=== PATIENT | female | born 1980 | race Caucasian/White ===

== ENCOUNTER 2017-03-31 12:30 | Inpatient (IN) | payer BC ==
[2017-03-31] MEDS ORDERED: ELECTROLYTE-148 SOLN 1,000 ML IV ONE (13:25)
[2017-03-31 13:59] LABS: BASOPHIL 0.9 % (0-2.0); EOSINOPHIL 0.5 % (0-4.5); MCH 27.4 pg (25.7-33.7); MCHC 33.4 g/dl (32.0-36.0); MEAN CELL VOLUME 82.2 fl (80-96); MEAN PLT VOLUME 9.5 fl (7.5-11.1); NEUTROPHILS 78.2 % (42.8-82.8); PLATELET COUNT 140 K/MM3 (134-434); RDW 15.6 % (11.6-15.6); WHITE BLOOD COUNT 9.4 K/mm3 (4.0-10.0)
[2017-03-31 14:22] LABS: INR 0.98 (0.82-1.09); PROTHROMBIN TIME (PATIENT) 10.8 SEC (9.98-11.88)
[2017-03-31 14:25] LABS: ACTIVATED PTT 25.3 SECONDS (26.9-34.4)
[2017-03-31 14:26] VITALS: BMI 28.3
[2017-03-31] MEDS ORDERED: CITRIC ACID/SODIUM CITRATE 30 ML UNIT-DOSE CUP PO ONE (14:30)
[2017-03-31] MEDS: ELECTROLYTE-148 SOLN 1,000 ML IV SCH (15:00)
[2017-03-31 15:12] LABS: HIV 1 & 2 AB NEGATIVE; HIV 1 AGp24 NEGATIVE
[2017-03-31] MEDS ORDERED: ONDANSETRON 4 MG/2 ML VIAL IVPUSH PRN (15:20)
--- NOTE | 2017-03-31 15:29 | HP ---
Past Medical History - Primary Care Physician PCP:: Jaxson Weiss - Admission Chief Complaint: 39,4 weeks by date,38 by sono labor, request for sterlization History of Present Illness: 36 yo f edc by date 04/03/17 by sono 04/14 c/o contraction since last night , no rom, no bleeding cx 1 cm 70 vx -2 mi, fhr cat 1, contraction q 3 min History Source: Patient Limitations to Obtaining History: No Limitations - Past Medical History ...: 3 ...Para: 2 ...Term: 2 ...: 0 ...Spon : 0 ...Induced : 0 ...Multiple Gestation: 0 ...LMP: 06/27/16 ... Weeks Gestation by Dates: 39.4 ...EDC by Dates: 04/03/17 ...EDC by Sono: 04/14/17 - Past Surgical History Past Surgical History: Yes: (2 previous c/s knee surgery, adenoidectomy herniated cervical spine disc) Hx Myomectomy: No Hx Transabdominal Cerclage: No - Smoking History Smoking history: Never smoked Have you smoked in the past 12 months: No - Alcohol/Substance Use Hx Alcohol Use: No - Social History Usual Living Arrangement: Yes: With Spouse History of Recent Travel: No Home Medications - Allergies Allergies/Adverse Reactions: Allergies Allergy/AdvReac Type Severity Reaction Status Date / Time pseudoephedrine HCl Allergy Severe hallucinati Verified 03/31/17 13:23 [From [facility]] ons Review of Systems - Review of Systems Constitutional: reports: No Symptoms Eyes: reports: No Symptoms HENT: reports: No Symptoms Neck: reports: No Symptoms Cardiovascular: reports: No Symptoms Respiratory: reports: No Symptoms Gastrointestinal: reports: Abdominal Pain Genitourinary: reports: Frequency Breasts: reports: No Symptoms Reported Musculoskeletal: reports: No Symptoms Integumentary: reports: No Symptoms Neurological: reports: No Symptoms Endocrine: reports: No Symptoms Hematology/Lymphatic: reports: No Symptoms Physical Exam - Maternity Vital Signs: Vital Signs Temperature 98.9 F 03/31/17 13:47 Pulse Rate 90 03/31/17 13:47 Respiratory Rate 18 03/31/17 13:47 Blood Pressure 110/76 03/31/17 13:47 O2 Sat by Pulse Oximetry (%) Constitutional: Yes: Well Nourished, No Distress, Calm Eyes: Yes: WNL, Conjunctiva Clear, EOM Intact HENT: Yes: WNL, Atraumatic, Normocephalic Neck: Yes: WNL, Supple, Trachea Midline Cardiovascular: Yes: WNL, Regular Rate and Rhythm Breast(s): Yes: WNL - Abdominal Exam/OB Number of Fetuses: Single Presentation: Vertex Contractions: Yes Regularity: Regular Intensity: Mod/Strong Monitor Mode: External Heart Rate Location: [facility] Category: I Accelerations: Uniform Decelerations: None - Vaginal Exam/OB Amniotic Membrane Status: Intact Presentation: Vertex/Position Station: -2 - Physical Exam Musculoskeletal: Yes: WNL Edema: Yes Edema: LLE: Trace, RLE: Trace Deep Tendon Reflex Grade: Normal +2 ...Motor Strength: WNL Psychiatric: Yes: WNL - Labs Lab Results: CBC, BMP 03/31/17 13:50 Hemorrhage Risk Assessment - Risk Factors Medium Risk Factors: Yes: Prior , uterine surgery,or multiple laparotomies Risk Score: 1 Risk Level: Medium Risk Problem List - Problems (1) with 38 completed weeks gestation Code(s): Z3A.38 - 38 WEEKS GESTATION OF (2) First stage of labor established Code(s): EKM1531 - (3) Labor established Code(s): IWL1219 - (4) Previous delivery affecting , antepartum Code(s): O34.219 - MATERNAL CARE FOR UNSP TYPE SCAR FROM PREVIOUS DEL (5) Sterilization Code(s): Z30.2 - ENCOUNTER FOR STERILIZATION Assessment/Plan repeat LST c/s and BTL, rba discussed
[2017-03-31] MEDS ORDERED: TUBERCULIN PPD 5 TU/0.1ML SYRINGE (IN PATIENT USE ONLY) ID ONE (16:00)
[2017-03-31] MEDS ORDERED: WITCH HAZEL 50% (TUCKS) 40 PAD/JAR PAD TP PRN (16:19)
[2017-03-31] MEDS ORDERED: BENZOCAINE 20% 57 GM BOTTLE TP PRN (16:19)
[2017-03-31] MEDS ORDERED: diphenhydrAMINE HCL 25 MG CAPSULE (FP) PO PRN (16:19)
[2017-03-31] MEDS ORDERED: METHYLERGONOVINE MALEATE 0.2 MG/1 ML AMP IM PRN (16:19)
[2017-03-31] MEDS ORDERED: oxyCODONE HCL 5 MG TABLET PO PRN (16:19)
[2017-03-31] MEDS ORDERED: BENZOCAINE 28 GM HEMORRHOIDAL OINTMENT PR PRN (16:19)
[2017-03-31] MEDS ORDERED: IBUPROFEN 800 MG/8 ML IJ IVPB PRN (16:19)
[2017-03-31] MEDS ORDERED: OXYTOCIN 20 UNITS in 0.9% NS 1,000 ML IV SCH (16:30)
[2017-03-31 17:34] LABS: ANION GAP 11 (8-16); CO2 21 mmol/L (21-32); CREATININE 0.5 mg/dL (0.55-1.02); GLUCOSE,RANDOM 75 mg/dL (74-106)
[2017-03-31] MEDS: IBUPROFEN 800 MG/8 ML IJ IVPB PRN (18:17)
[2017-03-31] MEDS ORDERED: DEXTROSE 5%-WATER - 50 ML IVPB ONE (23:32)
[2017-03-31] MEDS ORDERED: ceFAZolin SODIUM 1 GM VIAL ONE (23:32)
[2017-04-01] MEDS: CEFAZOLIN 1 GM in DEXTROSE 5%-WATER - 50 ML IVPB SCH ×2 (00:12→08:05)
[2017-04-01 07:32] LABS: BASOPHIL 0.5 % (0-2.0); EOSINOPHIL 0.6 % (0-4.5); MCH 27.5 pg (25.7-33.7); MEAN CELL VOLUME 83.4 fl (80-96); MEAN PLT VOLUME 9.6 fl (7.5-11.1); NEUTROPHILS 82.7 % (42.8-82.8); PLATELET COUNT 129 K/MM3 (134-434); RDW 15.5 % (11.6-15.6); WHITE BLOOD COUNT 12.2 K/mm3 (4.0-10.0)
[2017-04-01] MEDS ORDERED: DEXTROSE 5%-WATER - 50 ML IVPB ONE (07:55)
[2017-04-01] MEDS ORDERED: ceFAZolin SODIUM 1 GM VIAL ONE (07:55)
[2017-04-01] MEDS: IBUPROFEN 800 MG/8 ML IJ IVPB PRN (08:43)
[2017-04-01] MEDS: DEXTROSE 5%-LACTATED RINGERS 1,000 ML IV SCH (08:46)
[2017-04-01] MEDS ORDERED: DIPHTH,PERTUSS(ACELL),TET 0.5 ML DISP.SYRIN IM ONE ×2 (10:00→23:15)
--- NOTE | 2017-04-01 10:25 | PN ---
Progress Note (short form) - Note Progress Note: Anesthesia post op note. POD#1 . S/P , under spinal with duramorph. Patient seen and examined. VSS no complaints. No apparent post anesthesia complications. Signed off.
[2017-04-01] MEDS: ENOXAPARIN NA (PORCINE) 40 MG/0.4 ML DISP.SYRIN SQ SCH (10:49)
[2017-04-01] MEDS: ACETAMINOPHEN 325 MG TABLET (FP) PO PRN (13:13)
[2017-04-01] MEDS: SIMETHICONE 80 MG TAB.CHEW (FP) PO PRN ×3 (13:14→20:39)
--- NOTE | 2017-04-01 14:34 | PN ---
Progress Note (short form) - Note Progress Note: pod 1 doing well, has gas pain CBC, BMP 04/01/17 07:00 03/31/17 15:41 Last Vital Signs Temp Pulse Resp BP Pulse Ox 97.5 F L 68 20 105/67 100 04/01/17 13:58 04/01/17 13:58 04/01/17 13:58 04/01/17 13:58 03/31/17 17:45 abdomen soft, no distension, no cva. BS present incison dry, clean no calf tenderness no active vaginal bleeding plan ambulate. advance diet, pain management Problem List - Problems (1) with 38 completed weeks gestation Code(s): Z3A.38 - 38 WEEKS GESTATION OF (2) First stage of labor established Code(s): GLA3490 - (3) Labor established Code(s): BTW7603 - (4) Previous delivery affecting , antepartum Code(s): O34.219 - MATERNAL CARE FOR UNSP TYPE SCAR FROM PREVIOUS DEL (5) Sterilization Code(s): Z30.2 - ENCOUNTER FOR STERILIZATION
[2017-04-01] MEDS ORDERED: BISACODYL 10 MG SUPP.RECT PR PRN (16:19)
[2017-04-01] MEDS: IBUPROFEN 600 MG TABLET (FP) PO PRN ×2 (16:24→20:39)
[2017-04-01] MEDS: oxyCODONE HCL 5 MG TABLET PO PRN ×2 (16:25→20:40)
--- NOTE | 2017-04-01 18:38 | OP ---
DATE OF OPERATION: 03/31/2017 PREOPERATIVE DIAGNOSES: , 38-2/7 weeks gestation; previous section; labor; request of repeat section and tubal ligation. SURGEON: Ryan Weiss MD REHAB SERVICES AIDE: ANETTE Penaloza ANESTHESIA: Spinal. ANESTHESIOLOGIST: Jason Fuentes MD ESTIMATED BLOOD LOSS: 500 mL. FINDINGS: Live baby boy, ROT position, cord around the neck x1, 9 and 9. OPERATION REPORT: Patient was taken to the operating room under adequate spinal anesthesia. Abdomen and perineum was prepped and draped. Pfannenstiel abdominal skin incision was made over the previous incision. Abdominal wall was cut layer by layer until peritoneum was exposed and incised. Upon entering abdominal cavity, lower uterine segment was identified, and uterovesical fold of peritoneum established and bladder was pushed down. A low transverse uterine incision was made, incision extended laterally. Amniotic sac was entered, clear fluid. Head delivered from right occiput transverse position. Nasopharynx was suctioned. Cord around the neck x1 reduced. Live baby boy delivered without any difficulty. Placenta was delivered manually. Uterine cavity was cleaned of all remaining tissue. Uterine incision was closed in 2 layers, 1st layer with 0 Biosyn continuous suture, the 2nd layer with 0 Biosyn imbricating the 1st layer. Bladder flap was closed with 0 Biosyn continuous suture. Both tubes and ovaries were checked, were normal. No active bleeding was seen. All the lap pad, sponge count, instrument count were correct. Then peritoneum was closed with 0 Biosyn continuous suture. Muscles were brought together with interrupted suture of 0 Biosyn. Fascia was closed with 0 Biosyn continuous suture, subcutaneous fat with interrupted suture of 0 Biosyn, and the skin was closed with mindy. Patient tolerated procedure well, left the OR in good condition. RYAN WEISS M.D. [id number]
[2017-04-02] MEDS: SIMETHICONE 80 MG TAB.CHEW (FP) PO PRN ×4 (05:17→21:10)
[2017-04-02] MEDS: IBUPROFEN 600 MG TABLET (FP) PO PRN ×4 (05:18→21:11)
[2017-04-02] MEDS: oxyCODONE HCL 5 MG TABLET PO PRN ×3 (05:19→21:10)
--- NOTE | 2017-04-02 08:51 | PN ---
Progress Note (short form) - Note Progress Note: pod 2 doing well, ambulating , tolorating diet, passing gas CBC, BMP 04/01/17 07:00 03/31/17 15:41 Last Vital Signs Temp Pulse Resp BP Pulse Ox 97.1 F L 69 20 123/77 100 04/01/17 21:00 04/01/17 21:00 04/01/17 21:00 04/01/17 21:00 03/31/17 17:45 abdomen soft, no distension, BS present incision dry, clean no calf tenderness no excess vaginal bleeding Problem List - Problems (1) with 38 completed weeks gestation Code(s): Z3A.38 - 38 WEEKS GESTATION OF (2) First stage of labor established Code(s): [id number] - (3) Labor established Code(s): ZLV8434 - (4) Previous delivery affecting , antepartum Code(s): O34.219 - MATERNAL CARE FOR UNSP TYPE SCAR FROM PREVIOUS DEL (5) Sterilization Code(s): Z30.2 - ENCOUNTER FOR STERILIZATION
[2017-04-02] MEDS: ENOXAPARIN NA (PORCINE) 40 MG/0.4 ML DISP.SYRIN SQ SCH (10:06)
[2017-04-02] MEDS: ELECTROLYTE-148 SOLN 1,000 ML IV SCH (19:44)
[2017-04-02] MEDS: DEXTROSE 5%-LACTATED RINGERS 1,000 ML IV SCH (19:44)
[2017-04-02] MEDS: SENNOSIDES/DOCUSATE COMBO (SENNA PLUS) TABLET (UD) PO PRN (21:11)
[2017-04-03] MEDS: oxyCODONE HCL 5 MG TABLET PO PRN ×2 (08:01→22:10)
[2017-04-03] MEDS: SIMETHICONE 80 MG TAB.CHEW (FP) PO PRN ×3 (08:02→22:08)
[2017-04-03] MEDS: IBUPROFEN 600 MG TABLET (FP) PO PRN ×4 (08:02→22:11)
[2017-04-03 08:49] LABS: BASOPHIL 0.9 % (0-2.0); EOSINOPHIL 5.4 % (0-4.5); MCH 27.5 pg (25.7-33.7); MCHC 33.1 g/dl (32.0-36.0); MEAN CELL VOLUME 83.1 fl (80-96); MEAN PLT VOLUME 9.3 fl (7.5-11.1); NEUTROPHILS 70.4 % (42.8-82.8); PLATELET COUNT 163 K/MM3 (134-434); RDW 15.8 % (11.6-15.6); WHITE BLOOD COUNT 7.1 K/mm3 (4.0-10.0)
[2017-04-03] MEDS: ENOXAPARIN NA (PORCINE) 40 MG/0.4 ML DISP.SYRIN SQ SCH (10:35)
--- NOTE | 2017-04-03 11:04 | DS ---
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 Vital Signs: Vital Signs Temperature 98.0 F 04/02/17 22:00 Pulse Rate 64 04/02/17 22:00 Respiratory Rate 18 04/02/17 22:00 Blood Pressure 111/73 04/02/17 22:00 O2 Sat by Pulse Oximetry (%) 100 03/31/17 17:45 Constitutional: Yes: Well Nourished, No Distress, Calm Eyes: Yes: WNL, Conjunctiva Clear, EOM Intact HENT: Yes: WNL, Atraumatic, Normocephalic Neck: Yes: WNL, Supple, Trachea Midline Cardiovascular: Yes: WNL, Regular Rate and Rhythm Respiratory: Yes: WNL, Regular, CTA Bilaterally Gastrointestinal: Yes: WNL ...Rectal Exam: Yes: WNL Renal/: Yes: WNL ....Post : Yes: Uterus firm, Uterus non-tender, Slight lochia rubra Breast(s): Yes: WNL Musculoskeletal: Yes: WNL Extremities: Yes: WNL Integumentary: Yes: WNL Wound/Incision: Yes: Clean/Dry, Well Approximated, [place] Intact Neurological: Yes: WNL, Alert, Oriented ...Motor Strength: WNL Psychiatric: Yes: WNL, Alert, Oriented Labs: CBC, BMP 04/03/17 08:00 03/31/17 15:41 Delivery - Delivery Section: Repeat, Low Flap Transverse (repeat LST c/s , btl ,no complication) Type of Anesthesia: Spinal Episiotomy/Laceration: None EBL (cc): 500 Delivery, Single - Stages of Labor Date 1st Stage Initiatied: 03/31/17 Time 1st Stage Initiated: 07:00 Date of Delivery: 03/31/17 Time of Delivery: 15:48 Time Placenta Delivered: 15:49 Placenta: Yes: Expressed - 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 Net Present: Yes Name: Jarocho Luna Infant Gender: Male Weight: 6 lb 15 oz Position: Right, OT Total Hours ROM (Hrs/Mins): 0/2 - 1 Minute Total Score: 9 5 Minutes Total Score: 9 - [place] Feeding Plan Initial Plan: Elected not to breastfeed exclusively throughout hospitalization Discharge Summary Reason For Visit: C SECTION Current Active Problems First stage of labor established (Acute) Labor established (Acute) with 38 completed weeks gestation (Acute) Previous delivery affecting , antepartum (Acute) Sterilization (Acute) Procedures: Principal: repeat LST c/s Other Procedures: BTL Condition: Good
[2017-04-03] MEDS: ACETAMINOPHEN 325 MG TABLET (FP) PO PRN ×3 (12:39→22:12)
[2017-04-03] MEDS ORDERED: oxyCODONE HCL 5 MG TABLET ONE (22:05)
[2017-04-03] MEDS: SENNOSIDES/DOCUSATE COMBO (SENNA PLUS) TABLET (UD) PO PRN (22:12)
[2017-04-03 23:54] VITALS: PULSE 64
[2017-04-04] MEDS: SIMETHICONE 80 MG TAB.CHEW (FP) PO PRN (05:23)
[2017-04-04] MEDS: IBUPROFEN 600 MG TABLET (FP) PO PRN (05:26)
[2017-04-04] MEDS: oxyCODONE HCL 5 MG TABLET PO PRN (05:26)
--- NOTE | 2017-04-04 08:57 | PN ---
Post Progress Note Type of Delivery: Repeat C/S Vital Signs: Vital Signs Temperature 97.9 F 04/03/17 22:00 Pulse Rate 64 04/03/17 22:00 Respiratory Rate 18 04/03/17 22:00 Blood Pressure 109/68 04/03/17 22:00 O2 Sat by Pulse Oximetry (%) 99 04/03/17 09:00 Breast Exam: Yes: Soft Uterus: Yes: Fundus Firm, Fundus below umbilicus, Non-tender Incision: Yes: Chapo intact (removed) Abdomen/GI: Yes: Abdomen soft, Tolerating PO Lochia: Yes: Rubra Lochia, amount: Small Extremities: Yes: Calves non-tender Perineum: Yes: Intact Activity: Ambulating - Labs Labs: CBC WBC 7.1 K/mm3 (4.0-10.0) D 04/03/17 08:00 RBC 4.37 M/mm3 (3.60-5.2) 04/03/17 08:00 Hgb 12.0 GM/dL (10.7-15.3) 04/03/17 08:00 Hct 36.3 % (32.4-45.2) 04/03/17 08:00 MCV 83.1 fl (80-96) 04/03/17 08:00 MCH 27.5 pg (25.7-33.7) 04/03/17 08:00 MCHC 33.1 g/dl (32.0-36.0) 04/03/17 08:00 RDW 15.8 % (11.6-15.6) H 04/03/17 08:00 Plt Count 163 K/MM3 (134-434) D 04/03/17 08:00 MPV 9.3 fl (7.5-11.1) 04/03/17 08:00 Neutrophils % 70.4 % (42.8-82.8) 04/03/17 08:00 Lymphocytes % 18.4 % (8-40) D 04/03/17 08:00 Monocytes % 4.9 % (3.8-10.2) 04/03/17 08:00 Eosinophils % 5.4 % (0-4.5) H D 04/03/17 08:00 Basophils % 0.9 % (0-2.0) 09/19/17 08:00 Assessment/Plan 36yo P1 s/p repeat LT C/S and BTL, doing well stable, afebrile. care instructions reviewed. Continue routine postop care. Ambulation encouraged.
[2017-04-04] MEDS: ENOXAPARIN NA (PORCINE) 40 MG/0.4 ML DISP.SYRIN SQ SCH (09:54)
[2017-04-04 11:28] VITALS: BP 110/68; TEMP 98.9
--- NOTE | 2017-04-05 15:49 | PATH ---
Surgical Pathology Report Patient Name: HANY DELA CRUZ [facility]. Rec. #: [id number] /Age/Gender: 1980 (Age: 36) / F Account: [id number] Location: [facility] OBS/ASSISTANT LIBRARIAN Taken: 03/31/2017 Received: 04/02/2017 Reported: 04/05/2017 Physicians: Jaxson Weiss M.D. Specimen(s) Received A: PLACENTA B: PORTION LEFT FALLOPIAN TUBE C: PORTION RIGHT FALLOPIAN TUBE Clinical History , previous x2, 39.4 weeks, history of anemia Final Diagnosis A. PLACENTA, DELIVERY: FOCALLY DISRUPTED THIRD TRIMESTER PLACENTA WITH THREE VESSEL UMBILICAL CORD AND UNREMARKABLE PLACENTAL MEMBRANES. B. LEFT FALLOPIAN TUBE, PARTIAL SALPINGECTOMY: FULL LUMINAL PORTION OF UNREMARKABLE FALLOPIAN TUBE. C. RIGHT FALLOPIAN TUBES, PARTIAL SALPINGECTOMY: FULL LUMINAL PORTION OF UNREMARKABLE FALLOPIAN TUBE. Electronically Signed Hector Reyna M.D. Gross Description A. The specimen is received fresh labeled placenta and is a 476 gram, 18.0 x 15.0 x 2.2 cm. placenta with attached membranes and umbilical cord. The attached membranes are stratton, translucent with focal opacities and insert marginally. The umbilical cord measures 35 cm. in length and averages 1.2 cm. in diameter. The cord inserts eccentrically, 5 cm. to the nearest margin. No true knots or strictures are identified. Cut surface of the umbilical cord reveals 3 vessels. The surface is ceron-blue with minimal fibrin deposition and appropriate caliber vessels. The maternal surface is red-brown with focal defects. Sectioning reveals red-brown, spongy parenchyma. No lesions are identified. Upper Leather Sorter sections are submitted in three cassettes as follows: 1- membrane rolls and umbilical cord; 2-3- full thickness sections of placenta. B. Received in formalin labeled "left fallopian tube portion," is a 1.2 cm in length portion of fallopian tube. No fimbria are present. The outer surface is stratton-pérez and smooth. Sectioning reveals an unremarkable lumen. Upper Leather Sorter sections are submitted in one cassette. C. received in formalin labeled "portion of right fallopian tube," is a 1.0 cm in length portion of fallopian tube. No fimbria are present. The outer surface is stratton-pérez and smooth. Sectioning reveals an unremarkable lumen. Upper Leather Sorter sections are submitted in one cassette. 04/04/2017 [facility]04/04/2017
== END 2017-04-04 11:15 | disposition home or self-care (01) | DRG 766 ==
LOC: JDEL 12:30 → JLDR 13:25 → J3W 17:58
PROVIDERS: ADMIT Obstetrics & Gynecology; ATTEND Obstetrics & Gynecology
PROC: 10D00Z1 Extraction of Products of Conception, Low, Open Approach (ICD-10-PCS; principal; 2017-03-31)
PROC: 0UL70ZZ Occlusion of Bilateral Fallopian Tubes, Open Approach (ICD-10-PCS; 2017-03-31)
DX: O34.211 Maternal care for low transverse scar from previous cesarean delivery (principal); O69.1XX0 Labor and delivery complicated by cord around neck, with compression, not applicable or unspecified; Z3A.38 38 weeks gestation of pregnancy; Z37.0 Single live birth; Z30.2 Encounter for sterilization
CPT/HCPCS: 36415; 80048; 85025; 85610; 85730; 86593; 86850; 86900; 86901; 87389; 88302-TC; 88307-TC; 90715